=== PATIENT | male | born 1980 | race Hispanic/Latino ===

== ENCOUNTER 2016-10-25 20:57 | Emergency (ER) | payer SELFPAY ==
--- NOTE | 2016-10-25 21:31 | ER NURSING DOCUMENTATION ---
Nurse's Notes [facility] Name:Rebekah Stanton Age:35 yrs Sex:Male :1980 Arrival Date:10/25/2016 Time:20:57 Bed6 Private MD:Rebecca Van Diagnosis:Foot Sprain Presentation: 10/25 20:58 Presenting complaint: Patient states: Pt was playing basketball and came down on the rh left foot. Pt c/o pain and swelling in the left lateral foot. Transition of care: Home. 20:58 Acuity: KAYODE 4 20:58 Method Of Arrival: Private Vehicle Triage Assessment: 20:59 General: Appears in no apparent distress, Behavior is cooperative. Pain: Complains of rh pain in lateral side of left foot and dorsum of left foot. Neuro: Level of Consciousness is awake, alert, obeys commands. Cardiovascular: Capillary refill < 3 seconds. Derm: Skin is intact, is healthy with good turgor, Skin is pink, warm & dry. Musculoskeletal: Circulation, motion, and sensation intact Range of motion intact in all extremities. Swelling present in dorsum of left foot. Historical: - Allergies: No known drug Allergies; - Home Meds: 1. UNKNOWN BP MED - PMHx: Hypertension; - PSHx: None; - Tetanus: < 10 years. - Ebola Screening: : Patient negative for fever greater than or equal to 101.5 degrees Fahrenheit, and additional compatible Ebola Virus Disease symptoms. - Immunization history: Flu Vaccine None. - Social history: Smoking status: Patient states was never smoker of tobacco. Screenin:00 Infectious Disease Risk None. Abuse screen: Denies threats or abuse. Denies injuries rh from another. Nutritional screening: No deficits noted. Assessment: 21:00 See Triage Assessment done by same RN. rh Vital Signs: 20:59 BP 185 / 114; Pulse 112; Resp 16; Temp 97.6(O); Pulse Ox 92% on R/A; Weight 94.35 kg; rh Height 5 ft. 7 in. (170.18 cm); Pain 6/10; 20:59 Body Mass Index 32.58 (94.35 kg, 170.18 cm) rh ED Course: 20:58 Patient arrived in ED. em2 20:58 Physician, Rebecca is Private Physician. em2 20:58 Hailee Santana is Primary Nurse. 20:58 Triage completed. rh 21:00 Port Xray Completed. dnn 21:00 Valuables Remains with patient Patient has correct armband on for positive rh identification. Bed in low position. Call light in reach. Side rails up X 1. 21:00 Affected limb iced. Affected limb elevated. 21:10 Saul Andres MD is Attending Physician. 21:19 Jer Rios MD, Bal Pittman DO is Referral Physician. 21:21 Yovany wrap to left ankle Walking boot applied. rh Administered Medications: No medications were administered Outcome: 21:20 Discharge ordered by . 21:30 Discharged to home via wheelchair. [facility] 21:30 Condition: stable 21:30 Discharge instructions given to patient, family, Instructed on discharge instructions, follow up and referral plans. [facility]o [facility] Demonstrated understanding of instructions. 21:30 Patient left the ED. [facility] 10/26 11:06 Discharge F/U Call: Spoke with: patient. Overall Care on a scale of 1-10 with 10 ma being the best care, you rate our care as: Other comments: States everything was fine and he is feeling better Signatures: Maki Colunga, RN RN dc1 So King, RN Saul Lambert ma, MD MD jm Norman, David dnn Autumn-regBilly em2 Hailee Santana rh
--- NOTE | 2016-10-25 21:31 | ER PHYSICIAN DOCUMENTATION ---
Physician Documentation [facility] Name:Rebekah Stanton Age:35 yrs Sex:Male :1980 Arrival Date:10/25/2016 Time:20:57 Bed6 Private MD:Physician, No ED Saul Blair Disposition: 10/25/16 21:20 Discharged to Home/Self Care. Impression: Foot Sprain. - Condition is Good. - Discharge Instructions: SPRAIN FOOT. - Medical Reconciliation form form. - Follow up: Jer Rios MD, Bal Pittman DO; When: 1 week; Reason: Recheck today's complaints. - Problem is new. - Symptoms have improved. HPI: 10/25 21:25 This 35 yrs old Male presents to ER via Private Vehicle with complaints of jm Ankle Injury - LEFT. 21:25 The patient presents with an injury. The complaints affect the left ankle. Onset: The jm symptom(s)/episode began/occurred just prior to arrival. Context: resulted from a mis-step by the patient, The mechanism of injury involved inversion of the affected ankle. Pt was playing basketball and turned his foot/ankle. . Historical: - Allergies: No known drug Allergies; - Home Meds: 1. UNKNOWN BP MED - PMHx: Hypertension; - PSHx: None; - Tetanus: < 10 years. - Ebola Screening: : Patient negative for fever greater than or equal to 101.5 degrees Fahrenheit, and additional compatible Ebola Virus Disease symptoms. - Immunization history: Flu Vaccine None. - Social history: Smoking status: Patient states was never smoker of tobacco. ROS: 21:26 MS/extremity: Positive for injury or acute deformity, decreased range of motion, pain, jm swelling. 21:26 Skin: Positive for swelling. Exam: 21:26 Constitutional: The patient appears alert, awake. jm 21:26 Musculoskeletal/extremity: Extremities: grossly normal except: noted in the left lateral malleolus and dorsum of left foot: pain, swelling, swelling anterior and distal to the L lateral Malleolus on the L foot. No actual malleolus pain. , Pulses: are normal with no appreciated deficits, Perfusion: the patient is pink, noted to have brisk capillary refill, Perfusion: the extremity is normally perfused throughout, Sensation intact. 21:26 Skin: Appearance: Color: pink, swelling, that are moderate, no rash present. 21:26 Neuro: Mentation: is normal, Memory: is normal. Vital Signs: 20:59 BP 185 / 114; Pulse 112; Resp 16; Temp 97.6(O); Pulse Ox 92% on R/A; Weight 94.35 kg; rh Height 5 ft. 7 in. (170.18 cm); Pain 6/10; 20:59 Body Mass Index 32.58 (94.35 kg, 170.18 cm) MDM: 21:10 Patient medically screened. 21:27 Differential diagnosis: fracture, sprain. Data reviewed: vital signs, nurses notes, radiologic studies, and as a result, I will discharge patient. Test interpretation: by ED physician or midlevel provider: plain radiologic studies. Counseling: I had a detailed discussion with the patient and/or guardian regarding: the historical points, exam findings, and any diagnostic results supporting the discharge/admit diagnosis, radiology results, the need for outpatient follow up, a orthopedic surgeon. 10/25 21:10 Order name: [id number] [id number] EDUT 10/25 21:01 Order name: ORTHO: Ice Pack; Complete Time: 21:01 10/25 21:19 Order name: Walking Boot; Complete Time: 21:21 Dispensed Medications: No medications were administered Signatures: Maki Colunga, NATASHA RN sc1 Saul Andres MD MD jm Hofsess, Rachel
--- NOTE | 2016-10-26 12:28 | RADIOLOGY REPORT ---
Three views of the left foot demonstrate no displaced fracture or dislocation. The visualized joints appear unremarkable. IMPRESSION: No displaced injury is identified. If clinically indicated, further evaluation and/or follow-up may be of benefit. MECHE
== END 2016-10-25 21:31 | disposition home or self-care (01) ==
LOC: ER 20:57
DX: S93.602A Unspecified sprain of left foot, initial encounter (principal); W18.49XA Other slipping, tripping and stumbling without falling, initial encounter; Y92.310 Basketball court as the place of occurrence of the external cause; Y93.67 Activity, basketball; I10 Essential (primary) hypertension; Z79.899 Other long term (current) drug therapy
CPT/HCPCS: 99283